=== PATIENT | male | born 1950 | race Two or more races ===

== ENCOUNTER 2019-06-06 10:06 | Day surgery (SDC) | payer BC ==
[~2019-06-06] VITALS: Ht 170.2 cm; Wt 81.6 kg
[2019-06-06] MEDS ORDERED: Midazolam 2mg/2ml Inj ONE (10:22)
[2019-06-06 10:30] VITALS: BP 136/64
[2019-06-06] MEDS ORDERED: ATORVASTATIN CA10 MG ORAL (10:38)
[2019-06-06] MEDS ORDERED: BP MED PO (10:38)
[2019-06-06] MEDS ORDERED: ASPIRIN325 MG ORAL (10:38)
[2019-06-06] MEDS ORDERED: LR 1000ml ONE (11:00)
[2019-06-06] MEDS ORDERED: Propofol 200mg/20ml IV ONE (11:00)
--- NOTE | 2019-06-06 11:20 | Pre-Procedure Note/Attestation ---
Pre-Procedure Note/Attestation Complete Prior to Procedure Planned Procedure: not applicable Procedure Narrative: colonoscopy Indications for Procedure Pre-Operative Diagnosis: screening Attestation I attest that I discussed the nature of the procedure; its benefits; risks and complications; and alternatives (and the risks and benefits of such alternatives ), prior to the procedure, with the patient (or the patient's legal merchandiser retail representative). I attest that, if there was a reasonable possibility of needing a blood transfusion, the patient (or the patient's legal merchandiser retail representative) was given the [facility] standardized written summary, pursuant to the [place] Blood Safety Act ([place] Health and Safety Code # 1645, as amended). I attest that I re-evaluated the patient just prior to the surgery and that there has been no change in the patient's H&P, except as documented below: Ever Rosario MD Jun 06, 2019 11:20
--- NOTE | 2019-06-06 11:21 | Short Stay Surgery H&P ---
History of Present Illness History of Present Illness Chief Complaint screening HPI Jim Stern is a 69 year old male who was admitted on for Colon Screening Patient History Allergies: Coded Allergies: No Known Allergies (Unverified , 06/06/19) PAST MEDICAL HISTORY: (1) HTN (hypertension) (2) CAD (coronary artery disease) Medication History Scheduled Aspirin* (Aspirin*), 325 MG ORAL DAILY, (Reported) Atorvastatin Calcium* (Lipitor*), 10 MG ORAL BEDTIME, (Reported) [Bp Med], Unknown Dose PO DAILY, (Reported) Review of Systems Cardiovascular: Reports: no symptoms Respiratory: Reports: no symptoms Skeletal: Reports: no symptoms Gastrointestinal: Reports: no symptoms Genitourinary: Reports: no symptoms Neurologic: Reports: no symptoms Endocrine: Reports: no symptoms Hematologic: Reports: no symptoms Physical Exam Vital Signs Last Vital Signs Date Time Temp Pulse Resp B/P (MAP) Pulse Ox O2 Delivery O2 Flow Rate FiO2 06/06/19 10:42 Room Air 06/06/19 10:30 97.6 86 18 136/64 97 Skin: normal HENT: normal Heart: normal Lungs: normal Abdomen: normal Extremities: normal Plan Plan of Care colonoscopy Attestation Are the patient's medical conditions optimized for surgery? Attestation Response: yes Ever Rosario MD Jun 06, 2019 11:21
--- NOTE | 2019-06-06 11:36 | Anethesia Preoperative Eval ---
Anesthesia Pre-op PMH/ROS General Date of Evaluation: Jun 06, 2019 Time of Evaluation: 11:20 Anesthesiologist: maliha ASA Score: ASA 3 Mallampati Score Class I : Soft palate, uvula, fauces, pillars visible Class II: Soft palate, uvula, fauces visible Class III: Soft palate, base of uvula visible Class IV: Only hard plate visible Mallampati Classification: Class III Surgeon: heidi Diagnosis: screening Surgical Procedure: colonoscopy w/ bx Anesthesia History: none Family History: no anesthesia problems Allergies: Coded Allergies: No Known Allergies (Unverified , 06/06/19) Medications: see eMAR Patient NPO?: Yes NPO Date: Jun 05, 2019 NPO Time: 23:00 Past Medical History Cardiovascular: Reports: HTN, CAD - s/p stent, other - high lipid Pulmonary: Reports: MUKESH Gastrointestinal/Genitourinary: Reports: other - prostate CA Neurologic/Psychiatric: Denies: dementia, CVA, depression/anxiety, TIA, other Endocrine: Denies: DM, hypothyroidism, steroids, other HEENT: Denies: cataract (L), cataract (R), glaucoma, [place] (L), [place] (R), other Hematology/Immune: Denies: anemia, DVT, bleeding disorder, other Musculoskeletal/Integumentary: Denies: OA, RA, DJD, DDD, edema, other PSxH Narrative: prostate sx, cardiac stent Anesthesia Pre-op Phys. Exam Physician Exam Last Vital Signs Date Time Temp Pulse Resp B/P (MAP) Pulse Ox O2 Delivery O2 Flow Rate FiO2 06/06/19 10:42 Room Air 06/06/19 10:30 97.6 86 18 136/64 97 Constitutional: NAD Neurologic: CN 2-12 intact Respiratory: CTA Gastrointestinal: S/NT/ND Airway Exam Mallampati Score: Class III MO: full ROM: full Teeth: intact Anesthesia Pre-op A/P Studies Pre-op Studies: EKG - nsr Risk Assessment & Plan Assessment: ASA3 Plan: MAC Status Change Before Surgery: Ilana Ng M.D. Jun 06, 2019 11:36
--- NOTE | 2019-06-06 11:36 | Immediate Post-Op Evaluation ---
Immediate Post-Op Evalulation Immediate Post-Op Evalulation Procedure: colonoscopy w/ bx Date of Evaluation: Jun 06, 2019 Time of Evaluation: 12:00 IV Fluids: 200ml Blood Pressure Systolic: 111 Blood Pressure Diastolic: 72 Pulse Rate: 96 Respiratory Rate: 20 O2 Sat by Pulse Oximetry: 94 Temperature (Fahrenheit): 97 Pain Score (1-10): 0 Nausea: No Vomiting: No Complications none Patient Status: awake, patent Hydration Status: adequate Ilana Benson M.D. Jun 06, 2019 11:36
--- NOTE | 2019-06-06 11:37 | 48 Hour Post Anesthesia Eval ---
Post Anesthesia Evaluation Procedure: colonoscopy w/ bx Date of Evaluation: Jun 06, 2019 Time of Evaluation: 12:25 Blood Pressure Systolic: 116 0: 79 Pulse Rate: 89 Respiratory Rate: 16 Temperature (Fahrenheit): 97.7 O2 Sat by Pulse Oximetry: 96 Airway: patent Nausea: No Vomiting: No Hydration Status: adequate Mental Status/LOC: patient returned to baseline Post-Anesthesia Complications: none Follow-up care needed: ready to discharge Ilana Benson M.D. Jun 06, 2019 11:37
--- NOTE | 2019-06-06 11:51 | Endoscopy Procedure Note ---
Endoscopy Procedure Note General Indication for Procedure: screening Procedures Performed: colonoscopy Operative Findings/Diagnosis: 2 polyps Specimen: yes Pt Tolerated Procedure Well: Yes Estimated Blood Loss: none Anesthesia Anesthesiologist: joanne Anesthesia: MAC Inserted Devices Implant(s) used?: No Quality Quality of Bowel Preparation: Good Did scope reach the cecum?: Yes Was there any complications?: No GI Core Measures 50 yrs or older w/o bx or poly: No 10yrs. F/U recommended: Yes If not recommended, why?: Above average risk 18 years or older w/prev. colo: No Ever Rosario MD Jun 06, 2019 11:51
[2019-06-06 11:55] VITALS: BP 108/80
[2019-06-06 12:00] VITALS: BP 113/74
[2019-06-06 12:05] VITALS: BP 120/74
[2019-06-06 12:20] VITALS: BP 116/79
[2019-06-06 12:39] VITALS: BP 116/79
--- NOTE | 2019-06-06 15:30 | Procedure Note ---
DATE OF PROCEDURE: 06/06/2019 SURGEON: Ever Rosario M.D. PROCEDURE: Colonoscopy with biopsy. ANESTHESIA: Per . INSTRUMENT: Olympus adult flexible colonoscope. INDICATION: Screening colonoscopy. REASON FOR PROCEDURE: The procedure, risks, benefits, and possible consequences, including hemorrhage, aspiration, perforation and infection, and alternative treatments, were explained to the patient/legal guardian by Dr. Ever Rosario and the patient/legal guardian understood and accepted these risks. DESCRIPTION OF PROCEDURE: After informed consent was obtained and the patient was adequately sedated, first rectal exam was performed, which was positive for external and internal hemorrhoids. Then, the scope was advanced from the rectum into the cecum documented by appendiceal orifice, ileocecal valve, and right upper quadrant palpation. Quality of prep was good. The patient had 2 colonic polyps, 1 in the cecum, 1 in the ascending colon, both removed with a cold biopsy forceps technique. The patient had significant diverticulosis on the left colon with some right-sided diverticuli. Retroflexion of the rectum showed evidence of internal hemorrhoids. The patient tolerated procedure very well without any complications. SUMMARY OF FINDINGS: 1. Two colonic polyps removed, see above for details. 2. Diverticulosis. 3. Internal hemorrhoids. RECOMMENDATIONS: 1. Follow up biopsy results and treat accordingly. 2. We recommend repeat colonoscopy in 5 years. Ever Rosario M.D. DR: FRANCESCA JOB#: [id number] CC:
--- NOTE | 2019-06-12 12:55 | Cardiology Report ---
APPROVED REPORT EKG Measurement Heart [id number] Normal sinus rhythm Normal ECG
== END 2019-06-06 13:05 | disposition home or self-care (01) ==
LOC: GAS 10:06
DX: Z12.11 Encounter for screening for malignant neoplasm of colon (principal); K63.5 Polyp of colon; K57.90 Diverticulosis of intestine, part unspecified, without perforation or abscess without bleeding; K64.8 Other hemorrhoids; D12.0 Benign neoplasm of cecum; D12.4 Benign neoplasm of descending colon
CPT/HCPCS: 45380; 93005; J2250; J2704; J7120; 94003; 94150